=== PATIENT | female | born 1950 | race Hispanic/Latino ===

== ENCOUNTER → 2024-02-03 | Day surgery (SDC) | payer OTHER ==
[2024-02-01 10:20] LABS: BASOPHILS % 0.6 % (0.0-1.0); EOSINOPHILS # (AUTO) 0.1 (0.0-0.4); EOSINOPHILS % 1.6 % (0.0-6.0); HEMATOCRIT 40.7 % (34.2-44.1); HEMOGLOBIN 13.1 g/dL (12.0-16.0); LYMPHOCYTES # (AUTO) 1.8 (1.0-3.2); LYMPHOCYTES % 27.1 % (18.0-39.1); MEAN CORPUSCULAR HEMOGLOBIN 30.1 pg (28-32); MEAN CORPUSCULAR HGB CONC 32.2 g/dL (31-35); MEAN CORPUSCULAR VOLUME 93.6 fL (81-99); MONOCYTES # (AUTO) 0.4 (0.2-0.8); MONOCYTES % 6.1 % (4.4-11.3); NEUTROPHILS # (AUTO) 4.3 (2.1-6.9); NEUTROPHILS % 64.5 % (38.7-80.0); PLATELET COUNT 175 x10e3/uL (140-360); RED BLOOD COUNT 4.35 x10e6/uL (3.6-5.1); WHITE BLOOD COUNT 6.67 x10e3/uL (4.8-10.8)
[~2024-02-03] MED LIST: ALENDRONATE SOD35 MG PO; ATORVASTATIN CA20 MG PO; GAVILAX238 GM PO; HYDROCHLOROTHIA25 MG PO; LIDOCAINE HCL 2% LOCAL INJ 5 ML SDV VIAL INJ ONE; METOPROLOL SUCC25 MG PO; METOPROLOL TART50 MG PO; METOPROLOL-HCT1 EAC1 PO; PROPOFOL IV EMULSION 10 MG/ML 20 ML VIAL ONE
[2024-02-03] MEDS: LACTATED RINGER'S 1,000 ML ONE (09:32)
[2024-02-03 11:29] VITALS: TEMP 97.5
[2024-02-03 12:00] VITALS: BP 114/54; PULSE 62; RESP 16; O2SAT 99
== END | disposition home or self-care (01) ==
LOC: OR 08:06
PROVIDERS: ATTEND Internal Medicine Gastroenterology
DX: R19.5 Other fecal abnormalities (principal); K62.1 Rectal polyp; Z86.010 Personal history of colon polyps; K59.09 Other constipation; K64.8 Other hemorrhoids; K21.9 Gastro-esophageal reflux disease without esophagitis; Z71.3 Dietary counseling and surveillance; I10 Essential (primary) hypertension; E78.5 Hyperlipidemia, unspecified; M81.0 Age-related osteoporosis without current pathological fracture; Z01.810 Encounter for preprocedural cardiovascular examination; Z01.812 Encounter for preprocedural laboratory examination; Z79.899 Other long term (current) drug therapy; Z68.24 Body mass index [BMI] 24.0-24.9, adult
CPT/HCPCS: 36415; 45385; 85025; 88305; 93005; J2001; J2704; J7121; 45384